=== PATIENT | male | born 1960 | race Caucasian/White ===

== ENCOUNTER 2017-08-30 12:09 | Emergency (ER) | payer BC ==
--- NOTE | 2017-08-30 12:59 | RAD ---
HISTORY: Chest pain COMPARISONS: August 24, 2014 VIEWS: 1: frontal portable view of the chest at 12:50 PM FINDINGS: LINES AND TUBES: None. CARDIOMEDIASTINAL SILHOUETTE: The cardiomediastinal silhouette is normal for portable technique. PLEURA: The costophrenic angles are sharp. No pleural abnormalities are noted. LUNG PARENCHYMA: There is hyperinflation. ABDOMEN: The upper abdomen is clear. There is no subphrenic gas. BONES AND SOFT TISSUES: No bone or soft tissue abnormalities are noted. IMPRESSION: NO ACTIVE CARDIOPULMONARY DISEASE.
[2017-08-30 13:09] LABS: ABS Basophils 0 10^3/ul (0-0.2); ABS Eosinophils 0.1 10^3/ul (0-0.6); ABS Lymphocytes 2.1 10^3/ul (1.0-4.8); ABS Monocytes 0.6 10^3/ul (0-0.8); ABS Neutrophils 3.6 10^3/ul (1.5-7.7); ABS Nucleated RBC 0 10^3/ul; Eosinophil % 1.4 % (0-6); Hematocrit 43 % (42-52); Hemoglobin 14.5 g/dl (14.0-18.0); Lymphocyte % 33.1 % (25-47); Mean Corpuscular HGB Conc 34 g/dl (31-36); Mean Corpuscular Hemoglobin 29 pg (27-31); Mean Corpuscular Volume 85 fL (80-94); Mean Platelet Volume 8 um3 (7.4-10.4); Nucleated Red Blood Cells % 0.1; Platelet Count 251 10^3/ul (150-450); Red Blood Count 5.02 10^6/ul (4.0-5.4); Red Cell Distribution Width 14 % (10.5-15); White Blood Count 6.4 10^3/ul (3.5-10.8)
[2017-08-30 13:20] LABS: INR 0.9 (0.77-1.02)
[2017-08-30 13:50] LABS: Urine Appearance Clear; Urine Blood Negative (Negative); Urine Color Straw; Urine Ketones Negative (Negative); Urine Protein Negative (Negative); Urine Specific Gravity 1.005 (1.010-1.030); Urine Urobilinogen Negative (Negative)
[2017-08-30 18:14] VITALS: BP 125/78
--- NOTE | 2017-08-31 16:17 | ED ---
Robin Guiterrez Angela, scribed for Frederic Rowley MD on 08/30/17 at 1248 . HPI Chest Pain - HPI Summary HPI Summary: This pt is a 57 y/o male presenting to [facility] c/o chest pain for the last couple of weeks, worse today. Pt rates his chest pain 3 to 4 out of 10 in severity. He additionally states he is mildly SOB. He reports he shoveled snow 3 days ago and 2 days ago. Denies nausea, vomiting, fever. PMHx includes COPD and HTN. - History of Current Complaint Chief Complaint: EDChestPainROMI Time Seen by Provider: 08/30/17 12:38 Hx Obtained From: Patient Onset/Duration: Started Weeks Ago, Worse Since - today Timing: Constant, Lasting Weeks Current Severity: Mild Pain Intensity: 3 Pain Scale Used: 0-10 Numeric Chest Pain Location: Diffuse Chest Pain Radiates: No Aggravating Factor(s): Nothing Alleviating Factor(s): Nothing Associated Signs and Symptoms: Positive: Chest Pain, Shortness of Breath - mild. Negative: Fever, Nausea, Vomiting - Allergy/Home Medications Allergies/Adverse Reactions: Allergies Allergy/AdvReac Type Severity Reaction Status Date / Time MS Atorvastatin AdvReac Muscle Ache Verified 08/30/17 12:11 [From Lipitor] Home Medications: Home Medications Aspirin EC Low Dose* [Ecotrin EC Low Dose 81 MG*] 81 mg PO DAILY 08/30/17 [ History Confirmed 08/30/17] Multivitamins/Minerals TAB* [Theragran/minerals TAB*] 1 tab PO DAILY 08/30/17 [ History Confirmed 08/30/17] PMH/Surg Hx/FS Hx/Imm Hx Endocrine/Hematology History: Denies: Hx Diabetes Cardiovascular History: Reports: Hx Hypertension - STOPPED IT Wednesday09/18/14 DUE TO LOW PRESSURE Denies: Hx Pacemaker/ICD Respiratory History: Reports: Hx Chronic Obstructive Pulmonary Disease (COPD) Sensory History: Denies: Hx Hearing Aid Psychiatric History: Denies: Hx Panic Disorder Infectious Disease History: No Infectious Disease History: Denies: Traveled Outside the [place] in Last 30 Days - Family History Known Family History: Positive: Cardiac Disease - Father: coronary artery stent at around age 70. - Social History Alcohol Use: Rare Substance Use Type: Reports: None Smoking Status (MU): Current Every Day Smoker Review of Systems Negative: Fever, Chills Positive: Chest Pain Positive: Shortness Of Breath Negative: Vomiting, Nausea Musculoskeletal: Negative Skin: Negative Neurological: Negative All Other Systems Reviewed And Are Negative: Yes Physical Exam - Summary Physical Exam Summary: VITAL SIGNS: Reviewed. GENERAL: Patient is a well-developed and nourished male who is lying comfortable in the stretcher. Patient is not in any acute respiratory distress. HEAD AND FACE: No signs of trauma. No ecchymosis, hematomas or skull depressions. No sinus tenderness. EYES: PERRLA, EOMI x 2, No injected conjunctiva, no nystagmus. EARS: Hearing grossly intact. Ear canals and tympanic membranes are within normal limits. MOUTH: Oropharynx within normal limits. NECK: Supple, trachea is midline, no adenopathy, no JVD, no carotid bruit, no c- spine tenderness, neck with full ROM. CHEST: Symmetric, no tenderness at palpation LUNGS: Clear to auscultation bilaterally. No wheezing or crackles. CVS: Regular rate and rhythm, S1 and S2 present, no murmurs or gallops appreciated. ABDOMEN: Soft, non-tender. No signs of distention. No rebound no guarding, and no masses palpated. Bowel sounds are normal. EXTREMITIES: FROM in all major joints, no edema, no cyanosis or clubbing. NEURO: Alert and oriented x 3. No acute neurological deficits. Speech is normal and follows commands. SKIN: Dry and warm Triage Information Reviewed: Yes Vital Signs On Initial Exam: Initial Vitals Temp Pulse Resp BP Pulse Ox 99.1 F 93 20 143/106 97 08/30/17 12:11 08/30/17 12:11 08/30/17 12:11 08/30/17 12:11 08/30/17 12:11 Vital Signs Reviewed: Yes Diagnostics - Vital Signs Vital Signs Temp Pulse Resp BP Pulse Ox 08/30/17 12:11 99.1 F 93 20 143/106 97 - Laboratory Result Diagrams: 08/30/17 13:01 08/30/17 13:01 Lab Statement: Any lab studies that have been ordered have been reviewed, and results considered in the medical decision making process. - Radiology Chest XR Xray Interpretation: No Acute Changes - IMPRESSION: No active cardiopulmonary disease. Dr. Rowley has reviewed this radiology report. Radiology Interpretation Completed By: Radiologist - EKG 12:12 Cardiac Rate: NL EKG Rhythm: Sinus Rhythm - at 86 bpm EKG Interpretation: No ST elevation. Chest Pain Course/Dx - Course Assessment/Plan: This pt is a 57 y/o male presenting to [facility] c/o chest pain for the last couple of weeks, worse today. Pt rates his chest pain 3 to 4 out of 10 in severity. He additionally states he is mildly SOB. He reports he shoveled snow 3 days ago and 2 days ago. Denies nausea, vomiting, fever. PMHx includes COPD and HTN. Test results without any significant abnormalities. Two troponins, 4 hours apart, are both 0.00. Chest XR is negative. EKG shows no ST elevation. Therefore since the pt is asymptomatic she will be discharged home with follow up from PCP. Pt is hemodynamically stable, alert and oriented x3. - Diagnoses Provider Diagnoses: Chest pain Discharge - Discharge Plan Condition: Stable Disposition: HOME Patient Education Materials: Chest Pain (ED) Referrals: Ximena Powell MD [Primary Care Provider] - 3 Days Additional Instructions: Please follow up with your primary care provider. RETURN TO THE ED FOR ANY WORSENING SYMPTOMS. The documentation as recorded by the Robin golden Angela accurately reflects the service I personally performed and the decisions made by , Frederic Rowley MD.
== END 2017-08-30 18:13 | disposition home or self-care (01) ==
LOC: ED 12:09
DX: R07.9 Chest pain, unspecified (principal); R06.2 Wheezing; R06.02 Shortness of breath
CPT/HCPCS: 36415; 71045; 80053; 81003; 82550; 82553; 83605; 83880; 84443; 84484; 85025; 85610; 85730; 93005; 99284

== ENCOUNTER 2019-05-31 06:09 | Emergency (ER) | payer BC ==
--- NOTE | 2019-05-31 07:10 | ED ---
HPI Chest Pain - History of Current Complaint Chief Complaint: EDChestWallPain Time Seen by Provider: 05/31/19 06:45 Pain Intensity: 3 - Allergy/Home Medications Allergies/Adverse Reactions: Allergies Allergy/AdvReac Type Severity Reaction Status Date / Time MS Atorvastatin AdvReac Muscle Ache Verified 05/31/19 06:58 [From Lipitor] PMH/Surg Hx/FS Hx/Imm Hx Endocrine/Hematology History: Denies: Hx Diabetes Cardiovascular History: Reports: Hx Hypertension - STOPPED IT Wednesday09/18/14 DUE TO LOW PRESSURE Denies: Hx Pacemaker/ICD Respiratory History: Reports: Hx Chronic Obstructive Pulmonary Disease (COPD) Sensory History: Denies: Hx Hearing Aid Psychiatric History: Denies: Hx Panic Disorder Infectious Disease History: No Infectious Disease History: Denies: Traveled Outside the [place] in Last 30 Days - Family History Known Family History: Positive: Cardiac Disease - Father: coronary artery stent at around age 70. - Social History Alcohol Use: Rare Substance Use Type: Reports: None Smoking Status (MU): Current Every Day Smoker Physical Exam Vital Signs On Initial Exam: Initial Vitals Temp Pulse Resp BP Pulse Ox 98.0 F 78 18 141/104 98 05/31/19 06:20 05/31/19 06:20 05/31/19 06:20 05/31/19 06:20 05/31/19 06:20 Diagnostics - Vital Signs Vital Signs Temp Pulse Resp BP Pulse Ox 05/31/19 06:20 98.0 F 78 18 141/104 98 - Laboratory Lab Statement: Any lab studies that have been ordered have been reviewed, and results considered in the medical decision making process. Discharge ED - Discharge Plan Referrals: Ximena Powell MD [Primary Care Provider] -
--- NOTE | 2019-05-31 07:13 | ED ---
HPI Chest Pain - HPI Summary HPI Summary: Patient is a 59-year-old male who presents with intermittent chest pain for the last 2-3 days. He does not remember what he was doing when the pain started. His states he was shoveling snow the past couple of days. Patient describes the pain as "numbness" in the substernal area that does not radiate. Comes and goes multiple times per day, both at rest and while he is doing activities, such as shoveling snow. Lasts 10-15 minutes at a time. Denies SOB, dyspnea on exertion, cough. Denies abdominal pain, N/V. Denies fever. No prior cardiac history. - History of Current Complaint Chief Complaint: EDChestWallPain Time Seen by Provider: 05/31/19 06:45 Hx Obtained From: Patient Onset/Duration: Started Days Ago Timing: Intermittent Initial Severity: Mild Current Severity: Mild Pain Intensity: 3 Chest Pain Radiates: No Character: Other: - "numbness" Aggravating Factor(s): Nothing Alleviating Factor(s): Spontaneous Resolution Associated Signs and Symptoms: Positive: Negative. Negative: Anxiety, Shortness of Breath, Syncope, Fever, Cough, Hemoptysis, Back Pain, Calf Pain/ Swelling Related History: Obesity - Risk Factors Pulmonary Embolism Risk Factors: Smoking - former smoker TAD Risk Factors: Smoking - former smoker AMI/ACS Risk Factors: Obesity, Dyslipidemia - Allergy/Home Medications Allergies/Adverse Reactions: Allergies Allergy/AdvReac Type Severity Reaction Status Date / Time MS Atorvastatin AdvReac Muscle Ache Verified 05/31/19 06:58 [From Lipitor] Home Medications: Home Medications Betaxolol 0.5 %* [Betoptic 0.5%*] 1 drop BOTH EYES BID 05/31/19 [History Confirmed 05/31/19] Meclizine TAB* 12.5 mg PO SEE INSTRUCTIONS 05/31/19 [History Confirmed 05/31/19] PMH/Surg Hx/FS Hx/Imm Hx Endocrine/Hematology History: Denies: Hx Diabetes Cardiovascular History: Reports: Hx Hypertension - STOPPED IT Wednesday09/18/14 DUE TO LOW PRESSURE Denies: Hx Pacemaker/ICD Respiratory History: Reports: Hx Chronic Obstructive Pulmonary Disease (COPD) Sensory History: Denies: Hx Hearing Aid Psychiatric History: Denies: Hx Panic Disorder Infectious Disease History: No Infectious Disease History: Denies: Traveled Outside the [place] in Last 30 Days - Family History Known Family History: Positive: Cardiac Disease - Father: coronary artery stent at around age 70. - Social History Alcohol Use: Rare Substance Use Type: Reports: None Smoking Status (MU): Current Every Day Smoker Review of Systems Constitutional: Negative Negative: Fever, Chills Eyes: Negative ENT: Negative Positive: Chest Pain Respiratory: Negative Negative: Shortness Of Breath, Cough Gastrointestinal: Negative Negative: Abdominal Pain, Vomiting Genitourinary: Negative Positive: no symptoms reported Skin: Negative Neurological: Negative Psychological: Normal All Other Systems Reviewed And Are Negative: Yes Physical Exam Triage Information Reviewed: Yes Vital Signs On Initial Exam: Initial Vitals Temp Pulse Resp BP Pulse Ox 98.0 F 78 18 141/104 98 05/31/19 06:20 05/31/19 06:20 05/31/19 06:20 05/31/19 06:20 05/31/19 06:20 Vital Signs Reviewed: Yes Appearance: Positive: Well-Appearing, No Pain Distress, Well-Nourished Skin: Positive: Warm, Skin Color Reflects Adequate Perfusion, Dry Head/Face: Positive: Normal Head/Face Inspection Eyes: Positive: Normal, EOMI, CARRIE, Conjunctiva Clear ENT: Positive: Normal ENT inspection, Hearing grossly normal Neck: Positive: Supple, Nontender, No Lymphadenopathy Respiratory/Lung Sounds: Positive: Clear to Auscultation, Decreased Breath Sounds. Negative: Rales, Rhonchi, Wheezes Cardiovascular: Positive: Normal, RRR, Pulses are Symmetrical in both Upper and Lower Extremities, S1, S2. Negative: Leg Edema Left, Leg Edema Right Abdomen Description: Positive: Nontender, No Organomegaly, Soft. Negative: Pulsatile Mass Bowel Sounds: Positive: Present Musculoskeletal: Positive: Normal, Strength/ROM Intact Neurological: Positive: Normal Psychiatric: Positive: Normal, Affect/Mood Appropriate Procedures - Sedation Patient Received Moderate/Deep Sedation with Procedure: No Diagnostics - Vital Signs Vital Signs Temp Pulse Resp BP Pulse Ox 05/31/19 06:20 98.0 F 78 18 141/104 98 - Laboratory Result Diagrams: 05/31/19 07:18 05/31/19 07:18 Lab Statement: Any lab studies that have been ordered have been reviewed, and results considered in the medical decision making process. Chest Pain Course/Dx - Course Course Of Treatment: 59-year-old male who presents with intermittent chest pain for the past 2-3 days. Not associated with SOB, cough, palpitations. Lungs CTA B /L, no w/r/r. Normal S1 and S2, no m/r/g. No chest wall tenderness. EKG sinus rate and rhythm. Troponin 0.00. He states he feels he may have pulled a muscle. He denies any pain currently. He states when he had the discomfort it was rated a 1/10 and described as a tingling sensation to his bilateral ribs across his chest. No burning pain to the epigastric region and no throat pain. Denies any SOB. Patient currently feeling stable and well. DC with MSK strain of the chest, however differentials include angina, chest tightness. - Chest Pain Differential Diagnosis/HQI/PQRI: Angina, Chest Wall, Other: - COPD - Diagnoses Provider Diagnoses: Strain of chest wall Discharge ED - Sign-Out/Discharge Documenting (check all that apply): Patient Departure - Discharge Plan Condition: Stable Disposition: HOME Referrals: Ximena Powell MD [Primary Care Provider] - Additional Instructions: As discussed, please follow up with PCP as scheduled - Billing Disposition and Condition Condition: STABLE Disposition: Home
[2019-05-31 07:57] LABS: ABS Eosinophils 0.1 10^3/ul (0-0.6); ABS Monocytes 0.6 10^3/ul (0-0.8); ABS Neutrophils 2.8 10^3/ul (1.5-7.7); Eosinophil % 2.3 %; Hematocrit 44 % (42-52); Hemoglobin 15.2 g/dL (14.0-18.0); Lymphocyte % 36.2 %; Mean Corpuscular HGB Conc 35 g/dL (31-36); Mean Corpuscular Hemoglobin 30 pg (27-31); Mean Corpuscular Volume 87 fL (80-94); Mean Platelet Volume 8.3 fL (7.4-10.4); Nucleated Red Blood Cells % 0.1; Platelet Count 240 10^3/uL (150-450); Red Blood Count 5.09 10^6 /uL (4.18-5.48); Red Cell Distribution Width 14 % (10-15); White Blood Count 5.5 10^3/uL (3.5-10.8)
[2019-05-31 08:16] LABS: Albumin 4.5 g/dL (3.2-5.2); Calcium 9.3 mg/dL (8.6-10.3); Total Bilirubin 0.6 mg/dL (0.2-1.0)
[2019-05-31 08:22] LABS: Albumin/Globulin Ratio 1.7 (1-3); BUN/Creatinine Ratio 18.4 (8-20); EGFR African American 126.2 (>60); EGFR Non-African American 104.3 (>60); Globulin 2.7 g/dL (2-4); Total Protein 7.2 g/dL (6.4-8.9)
[2019-05-31 09:53] VITALS: BP 121/95
== END 2019-05-31 09:53 | disposition home or self-care (01) ==
LOC: ED 06:09
DX: S29.011A Strain of muscle and tendon of front wall of thorax, initial encounter (principal); X58.XXXA Exposure to other specified factors, initial encounter; Y92.9 Unspecified place or not applicable; J44.9 Chronic obstructive pulmonary disease, unspecified; I10 Essential (primary) hypertension; Z88.8 Allergy status to other drugs, medicaments and biological substances; Z82.49 Family history of ischemic heart disease and other diseases of the circulatory system; Z87.891 Personal history of nicotine dependence
CPT/HCPCS: 36415; 71046; 80053; 83605; 84484; 85025; 93005; 99283